=== PATIENT | female | born 1955 | race American Indian/Alaskan Native ===

== ENCOUNTER 2017-05-06 17:55 | Emergency (ER) | payer MEDICARE ==
--- NOTE | 2017-05-06 20:56 | Emergency Department Report ---
ED ENT HPI - General Chief complaint: Earache Stated complaint: SWOLLEN THROAT Time Seen by Provider: 05/06/17 20:26 Source: patient Mode of arrival: Ambulatory Limitations: No Limitations - History of Present Illness Initial comments: Patient is a 61-year-old female who's complaining of right neck pain. Patient and present for approximately 5-6 days. Patient was diagnosed with an infection in her anterior cervical lymph nodes/salivary glands. She was not given a definitive diagnosis. Patient on clindamycin for the last 4 days but states that she has no change in the symptoms there is still swelling and pain. Patient is able to breathe fine and swallow. Patient denies any fevers chills cough nausea vomiting diarrhea at this time. - Related Data Home Medications Medication Instructions Recorded Confirmed Last Taken Cyclobenzaprine [Flexeril] 10 mg PO TID PRN 08/01/13 11/19/13 07/31/13 07:00 Lisinopril [Zestril] 10 mg PO QDAY 08/01/13 11/19/13 07/31/13 07:00 Lovastatin [Mevacor] 20 mg PO QPM 08/01/13 11/19/13 07/31/13 07:00 Meloxicam [Mobic] 7.5 mg PO QDAY 08/01/13 11/19/13 07/31/13 07:00 Previous Rx's Medication Instructions Recorded Last Taken Type Lisinopril/Hydrochlorothiazide 1 tab PO QDAY #30 tablet 11/19/13 Unknown Rx [Zestoretic 20-12.5 mg] Amoxicillin/Potassium Clav 1 each PO BID #14 tablet 05/06/17 Unknown Rx [Augmentin 875-125 Tablet] predniSONE [Deltasone] 20 mg PO QDAY #5 tab 05/06/17 Unknown Rx traMADol [Ultram] 50 mg PO Q6HR PRN #12 tablet 05/06/17 Unknown Rx Allergies Allergy/AdvReac Type Severity Reaction Status Date / Time acetaminophen Allergy Vomiting Verified 11/21/15 09:34 [From Darvocet-N] propoxyphene HCl Allergy Vomiting Verified 11/21/15 09:34 [From Darvon] propoxyphene napsylate Allergy Vomiting Verified 11/21/15 09:34 [From Darvocet-N] ED Dental HPI - General Chief complaint: Earache Stated complaint: SWOLLEN THROAT Time Seen by Provider: 05/06/17 20:26 Source: patient Mode of arrival: Ambulatory Limitations: No Limitations - Related Data Home Medications Medication Instructions Recorded Confirmed Last Taken Cyclobenzaprine [Flexeril] 10 mg PO TID PRN 08/01/13 11/19/13 07/31/13 07:00 Lisinopril [Zestril] 10 mg PO QDAY 08/01/13 11/19/13 07/31/13 07:00 Lovastatin [Mevacor] 20 mg PO QPM 08/01/13 11/19/13 07/31/13 07:00 Meloxicam [Mobic] 7.5 mg PO QDAY 08/01/13 11/19/13 07/31/13 07:00 Previous Rx's Medication Instructions Recorded Last Taken Type Lisinopril/Hydrochlorothiazide 1 tab PO QDAY #30 tablet 11/19/13 Unknown Rx [Zestoretic 20-12.5 mg] Amoxicillin/Potassium Clav 1 each PO BID #14 tablet 05/06/17 Unknown Rx [Augmentin 875-125 Tablet] predniSONE [Deltasone] 20 mg PO QDAY #5 tab 05/06/17 Unknown Rx traMADol [Ultram] 50 mg PO Q6HR PRN #12 tablet 05/06/17 Unknown Rx Allergies Allergy/AdvReac Type Severity Reaction Status Date / Time acetaminophen Allergy Vomiting Verified 11/21/15 09:34 [From Darvocet-N] propoxyphene HCl Allergy Vomiting Verified 11/21/15 09:34 [From Darvon] propoxyphene napsylate Allergy Vomiting Verified 11/21/15 09:34 [From Darvocet-N] ED Review of Systems ROS: Stated complaint: SWOLLEN THROAT Other details as noted in HPI Comment: All other systems reviewed and negative ED Past Medical Hx - Past Medical History Hx Hypertension: Yes Hx Arthritis: Yes Additional medical history: hi cholest - Surgical History Hx Cholecystectomy: Yes Additional Surgical History: hysterectomy - Social History Smoking Status: Current Every Day Smoker Substance Use Type: None - Medications Home Medications: Home Medications Medication Instructions Recorded Confirmed Last Taken Type Cyclobenzaprine [Flexeril] 10 mg PO TID PRN 08/01/13 11/19/13 07/31/13 07:00 History Lisinopril [Zestril] 10 mg PO QDAY 08/01/13 11/19/13 07/31/13 07:00 History Lovastatin [Mevacor] 20 mg PO QPM 08/01/13 11/19/13 07/31/13 07:00 History Meloxicam [Mobic] 7.5 mg PO QDAY 08/01/13 11/19/13 07/31/13 07:00 History Lisinopril/Hydrochlorothiazide 1 tab PO QDAY #30 tablet 11/19/13 Unknown Rx [Zestoretic 20-12.5 mg] Amoxicillin/Potassium Clav 1 each PO BID #14 tablet 05/06/17 Unknown Rx [Augmentin 875-125 Tablet] predniSONE [Deltasone] 20 mg PO QDAY #5 tab 05/06/17 Unknown Rx traMADol [Ultram] 50 mg PO Q6HR PRN #12 tablet 05/06/17 Unknown Rx ED Physical Exam - General Limitations: No Limitations General appearance: alert, in no apparent distress - Head Head exam: Present: atraumatic, normocephalic - Eye Eye exam: Present: normal appearance - ENT ENT exam: Present: mucous membranes moist, other (patient has swelling to the submandibular area at near the angle of the jaw. There is an area of swelling partially sizable time. There is no overlying erythema or fluctuance. Patient' s airway appears to be intact.) - Neck Neck exam: Present: normal inspection - Respiratory Respiratory exam: Present: normal lung sounds bilaterally. Absent: respiratory distress, wheezes, rales - Cardiovascular Cardiovascular Exam: Present: regular rate, normal rhythm. Absent: systolic murmur, diastolic murmur, rubs, gallop - GI/Abdominal GI/Abdominal exam: Present: soft, normal bowel sounds. Absent: distended, tenderness, guarding - Extremities Exam Extremities exam: Present: normal inspection - Back Exam Back exam: Present: normal inspection - Neurological Exam Neurological exam: Present: alert, oriented X3 - Psychiatric Psychiatric exam: Present: normal affect, normal mood - Skin Skin exam: Present: warm, dry, intact, normal color. Absent: rash ED Course Vital Signs 05/06/17 17:58 Temperature 98.5 F Pulse Rate 85 Respiratory 16 Rate Blood Pressure 145/79 O2 Sat by Pulse 97 Oximetry ED Medical Decision Making - Medical Decision Making The patient has had no change in her symptoms since starting the clindamycin and she'll be changed from clindamycin to Augmentin. Patient will also be started on prednisone and Ultram for pain. Patient be discharged home she has follow-up with ENT on May 14 Critical care attestation.: If time is entered above; I have spent that time in minutes in the direct care of this critically ill patient, excluding procedure time. ED Disposition Clinical Impression: Parotitis Disposition: - TO HOME OR SELFCARE Is pt being admited?: No Does the pt Need Aspirin: No Condition: Stable Prescriptions: Amoxicillin/Potassium Clav [Augmentin 875-125 Tablet] 1 each PO BID #14 tablet predniSONE [Deltasone] 20 mg PO QDAY #5 tab traMADol [Ultram] 50 mg PO Q6HR PRN #12 tablet PRN Reason: Pain Referrals: PRIMARY CARE, [Primary Care Provider] - 3-5 Days
[2017-05-06 21:55] VITALS: BP 145/75
== END 2017-05-06 21:55 | disposition home or self-care (01) ==
LOC: ED 17:55
DX: K11.20 Sialoadenitis, unspecified (principal); I10 Essential (primary) hypertension; M19.90 Unspecified osteoarthritis, unspecified site; E78.00 Pure hypercholesterolemia, unspecified; F17.200 Nicotine dependence, unspecified, uncomplicated; Z90.49 Acquired absence of other specified parts of digestive tract; Z90.710 Acquired absence of both cervix and uterus
CPT/HCPCS: 99282

== ENCOUNTER 2017-11-29 12:17 | Emergency (ER) | payer SELFPAY ==
[2017-11-29 12:29] VITALS: BP 168/80
== END 2017-11-29 15:35 | disposition left against medical advice (07) ==
LOC: ED 12:17
DX: I10 Essential (primary) hypertension (principal); Z53.21 Procedure and treatment not carried out due to patient leaving prior to being seen by health care provider

== ENCOUNTER 2017-11-29 20:04 | Emergency (ER) | payer MEDICARE ==
[2017-11-29 21:19] LABS: Basophils # (Auto) 0.1 K/mm3 (0.0-0.1); Basophils % (Auto) 0.7 % (0.0-1.8); Eosinophils # (Auto) 0.1 K/mm3 (0.0-0.4); Eosinophils % (Auto) 1.5 % (0.0-4.3); Hematocrit 37.6 % (30.3-42.9); Hemoglobin 12.2 gm/dl (10.1-14.3); Lymphocytes # (Auto) 4.1 K/mm3 (1.2-5.4); Lymphocytes % (Auto) 44.3 % (13.4-35.0); Mean Corpuscular HGB Conc 33 % (30-34); Mean Corpuscular Hemoglobin 28 pg (28-32); Mean Corpuscular Volume 86 fl (79-97); Monocytes # (Auto) 0.6 K/mm3 (0.0-0.8); Monocytes % (Auto) 6.8 % (0.0-7.3); Platelet Count 311 K/mm3 (140-440); Red Blood Count 4.39 M/mm3 (3.65-5.03); Red Cell Distribution Width 14.7 % (13.2-15.2)
[2017-11-29 21:26] LABS: BUN/Creatinine Ratio 22; Blood Urea Nitrogen 13 mg/dL (7-17); Calcium 9.3 mg/dL (8.4-10.2); Hemolysis Index 4
--- NOTE | 2017-11-29 21:32 | Cat Scan Report ---
FINAL REPORT PROCEDURE: CT HEAD/BRAIN WO CON TECHNIQUE: Computerized tomography of the head was performed without contrast material. HISTORY: headache COMPARISON: No prior studies are available for comparison. FINDINGS: Skull and scalp: Normal. Paranasal sinuses: Normal. Ventricles and subarachnoid spaces: Normal. Cerebrum: No evidence of hemorrhage, acute infarction or mass. Basal ganglia calcifications are noted Cerebellum and brainstem: No evidence of hemorrhage, acute infarction or mass. Vasculature: Atherosclerotic calcifications.. Comments: None. IMPRESSION: No acute intracranial abnormality.
[2017-11-30] MEDS ORDERED: CATAPRES PO ONE (04:26)
[2017-11-30] MEDS ORDERED: TYLENOL PO ONE (04:26)
--- NOTE | 2017-11-30 04:31 | Emergency Department Report ---
HPI - General Chief Complaint: Headache Time Seen by Provider: 11/30/17 04:03 - HPI HPI: Room 22 The patient is a 62-year-old female presenting with a chief complaint of hypertension and headache. The patient states she's had a frontal headache since yesterday. The patient states she went to the pharmacy today and had blood pressure checked and was found to be hypertensive at 186/96. The patient states she is advised to come to the emergency department by the pharmacist so she took her blood pressure medication and came to the ED. The patient states she still has a headache but has improved she currently gives her pain is scored 6/10. Patient denies nausea vomiting. Patient denies any other pain Location: Head Duration: Constant since yesterday Quality: Ache Severity: 6/10 Modifying factors: [see above] Context: [see above] Mode of transportation: [not driving] ED Past Medical Hx - Past Medical History Hx Hypertension: Yes Hx Arthritis: Yes Additional medical history: hi cholest, TIA - Surgical History Hx Cholecystectomy: Yes Additional Surgical History: hysterectomy - Family History Family history: no significant - Social History Smoking Status: Current Every Day Smoker (3/4 pack per day) Substance Use Type: None (denies illicit drug use) - Medications Home Medications: Home Medications Medication Instructions Recorded Confirmed Last Taken Type Lovastatin [Mevacor] 20 mg PO QPM 08/01/13 11/19/13 07/31/13 07:00 History Meloxicam [Mobic] 7.5 mg PO QDAY 08/01/13 11/19/13 07/31/13 07:00 History amLODIPine [Norvasc] 2.5 mg PO DAILY 11/30/17 11/30/17 11/29/17 History hydroCHLOROthiazide 1 tab PO DAILY 11/30/17 11/30/17 Unknown History [Hydrochlorothiazide] ED Review of Systems ROS: Stated complaint: HIGH BLOOD PRESSURE Other details as noted in HPI Constitutional: no symptoms reported Eyes: denies: eye pain ENT: denies: throat pain Respiratory: no symptoms reported Cardiovascular: denies: chest pain Endocrine: no symptoms reported Gastrointestinal: denies: abdominal pain, nausea, vomiting Genitourinary: denies: dysuria Musculoskeletal: denies: back pain Neurological: headache Physical Exam - Physical Exam Vital Signs: Vital Signs 11/29/17 11/30/17 11/30/17 20:20 03:05 03:13 Temperature 98.7 F Pulse Rate 78 69 Respiratory 18 18 18 Rate Blood Pressure 160/77 165/85 Blood Pressure [Left] O2 Sat by Pulse 99 Oximetry 11/30/17 11/30/17 11/30/17 03:20 03:30 04:00 Temperature Pulse Rate 68 68 65 Respiratory 16 15 22 Rate Blood Pressure 151/83 174/89 Blood Pressure 165/88 [Left] O2 Sat by Pulse Oximetry Vital Signs 11/29/17 11/30/17 11/30/17 20:20 03:05 03:13 Temperature 98.7 F Pulse Rate 78 69 Respiratory 18 18 18 Rate Blood Pressure 160/77 165/85 Blood Pressure [Left] O2 Sat by Pulse 99 Oximetry 11/30/17 11/30/17 11/30/17 03:20 03:30 04:00 Temperature Pulse Rate 68 68 65 Respiratory 16 15 22 Rate Blood Pressure 151/83 174/89 Blood Pressure 165/88 [Left] O2 Sat by Pulse Oximetry 11/30/17 11/30/17 11/30/17 04:30 04:35 04:50 Temperature Pulse Rate 71 77 72 Respiratory 17 18 17 Rate Blood Pressure 161/87 161/87 174/89 Blood Pressure [Left] O2 Sat by Pulse Oximetry 11/30/17 11/30/17 05:06 05:40 Temperature Pulse Rate 62 67 Respiratory 17 16 Rate Blood Pressure 161/87 123/68 Blood Pressure 123/68 [Left] O2 Sat by Pulse Oximetry Physical Exam: GENERAL: The patient is well-developed well-nourished female lying on stretcher not appearing to be in acute distress. [] HEENT: Normocephalic. Atraumatic. Extraocular motions are intact. Patient has moist mucous membranes. NECK: Supple. No meningitic signs are noted. Trachea midline CHEST/LUNGS: Clear to auscultation. There is no respiratory distress noted. HEART/CARDIOVASCULAR: Regular. There is no tachycardia. There is no gallop rub or murmur. ABDOMEN: Abdomen is soft, nontender. Patient has normal bowel sounds. There is no abdominal distention. SKIN: There is no rash. There is no edema. There is no diaphoresis. NEURO: The patient is awake, alert, and oriented. The patient is cooperative. The patient has no focal neurologic deficits. The patient has normal speech. Cranial nerves II through XII grossly intact, no drift MUSCULOSKELETAL: There is no evidence of acute injury. ED Course Vital Signs 11/29/17 11/30/17 11/30/17 20:20 03:05 03:13 Temperature 98.7 F Pulse Rate 78 69 Respiratory 18 18 18 Rate Blood Pressure 160/77 165/85 Blood Pressure [Left] O2 Sat by Pulse 99 Oximetry 11/30/17 11/30/17 11/30/17 03:20 03:30 04:00 Temperature Pulse Rate 68 68 65 Respiratory 16 15 22 Rate Blood Pressure 151/83 174/89 Blood Pressure 165/88 [Left] O2 Sat by Pulse Oximetry ED Medical Decision Making - Lab Data Result diagrams: 11/29/17 20:56 11/29/17 20:56 Laboratory Tests 11/29/17 11/29/17 20:56 20:56 WBC 9.4 RBC 4.39 Hgb 12.2 Hct 37.6 MCV 86 MCH 28 MCHC 33 RDW 14.7 Plt Count 311 Lymph % (Auto) 44.3 H [place] % (Auto) 6.8 Eos % (Auto) 1.5 Baso % (Auto) 0.7 Lymph # 4.1 [place] # 0.6 Eos # 0.1 Baso # 0.1 Seg Neutrophils % 46.7 Seg Neutrophils # 4.4 Sodium 143 Potassium 3.9 Chloride 105.1 Carbon Dioxide 27 Anion Gap 15 BUN 13 Creatinine 0.6 L Estimated GFR > 60 BUN/Creatinine Ratio 22 Glucose 123 H Calcium 9.3 Troponin T < 0.010 - EKG Data -: EKG Interpreted by Ca EKG shows normal: sinus rhythm Rate: normal - EKG Data When compared to previous EKG there are: no significant change Interpretation: unchanged when compared t (09/28/2008) - Radiology Data Radiology results: report reviewed (CT head), image reviewed (CT head) CT head (read by radiologist) -no acute intracranial abnormality - Differential Diagnosis hypertensive emergency, ICH, headache Critical care attestation.: If time is entered above; I have spent that time in minutes in the direct care of this critically ill patient, excluding procedure time. ED Disposition Clinical Impression: Headache, Hypertension Disposition: DC-01 TO HOME OR SELFCARE Is pt being admited?: No Does the pt Need Aspirin: No Condition: Stable Instructions: Hypertension (ED) Additional Instructions: Return to the emergency department immediately should you develop worsening symptoms, fever, inability to tolerate food or liquid or any other concerns. Referrals: LUCY MOTLEY MD [Primary Care Provider] - [facility] Time of Disposition: 05:44
[2017-11-30 05:42] VITALS: BP 123/68
== END 2017-11-30 05:50 | disposition home or self-care (01) ==
LOC: ED 20:04
DX: I10 Essential (primary) hypertension (principal); M19.90 Unspecified osteoarthritis, unspecified site; E78.00 Pure hypercholesterolemia, unspecified; F17.200 Nicotine dependence, unspecified, uncomplicated; Z86.73 Personal history of transient ischemic attack (TIA), and cerebral infarction without residual deficits; Z90.49 Acquired absence of other specified parts of digestive tract; Z90.710 Acquired absence of both cervix and uterus; Z88.8 Allergy status to other drugs, medicaments and biological substances; Z88.5 Allergy status to narcotic agent
CPT/HCPCS: 36415; 70450; 80048; 84484; 85025; 93005; 93010; 99284

== ENCOUNTER 2018-05-25 10:44 | Outpatient (CLI) | payer MEDICARE ==
--- NOTE | 2018-05-25 14:21 | Mammography Report ---
BILATERAL DIGITAL SCREENING MAMMOGRAM with CAD: 05/25/18 10:44:00 CLINICAL: Routine screening. COMPARISON:04/10/13 FINDINGS: The breasts are heterogeneously dense, which may obscure small masses. No mass, architectural distortion or suspicious calcifications. IMPRESSION: No mammographic evidence of malignancy. BI-RADS CATEGORY: 1 - - Negative RECOMMENDATION: Routine mammographic screening in one year. COMMENT: Patient follow-up letters are generated by our [employer] application.
== END 2018-05-25 10:45 | disposition home or self-care (01) ==
LOC: MAMMO 10:44
PROVIDERS: ATTEND Family Medicine
DX: Z12.31 Encounter for screening mammogram for malignant neoplasm of breast (principal); I10 Essential (primary) hypertension; M19.90 Unspecified osteoarthritis, unspecified site; Z90.49 Acquired absence of other specified parts of digestive tract; Z90.710 Acquired absence of both cervix and uterus
CPT/HCPCS: 77067

== ENCOUNTER 2018-07-21 09:35 | Outpatient (CLI) | payer MEDICARE ==
--- NOTE | 2018-07-21 11:58 | XRay Report ---
SACROILIAC JOINTS: History: Generalized osteoarthrosis. PA and both obliques of the SI joints demonstrate a normal joint space with well defined cortical margins. The bones are normally mineralized with no destructive changes or fractures. IMPRESSION: Normal study.
--- NOTE | 2018-07-21 12:00 | XRay Report ---
BILATERAL ANKLES, 3 VIEWS History: Generalized osteoarthrosis. Findings: There is moderate soft tissue swelling or edema in the left ankle and mild soft tissue swelling or edema in the right ankle. No significant degenerative changes are identified at the tibiotalar joints bilaterally. There are [id number] osteoarthritic changes in the midfoot bilaterally. Moderate bilateral plantar spurs are identified. IMPRESSION: Nonspecific soft tissue swelling or edema, left greater than right. Degenerative changes in the midfoot. Moderate bilateral plantar spurs.
--- NOTE | 2018-07-21 12:05 | XRay Report ---
ROUTINE CHEST, TWO VIEWS: HISTORY: chest pain. The trachea, heart, mediastinal contour, lung beckman and bony thorax are unremarkable. Mild multilevel degenerative disc disease is noted in the thoracic spine. IMPRESSION: Unremarkable chest x-ray.
--- NOTE | 2018-07-21 12:13 | XRay Report ---
CERVICAL SPINE, 5 views: History: Generalized osteoarthrosis. Findings: On the lateral images, there is minimal anterolisthesis of C5 with respect to C6 and C6 with respect to C7 measuring approximately 2 mm. This appears to be secondary to degenerative facet arthropathy. The remaining cervical vertebra are normal in alignment. There is mild disc space narrowing and posterior spurring at C3-4, C4-5 and C5-6. The oblique images suggest mild left neural foraminal narrowing at C4-5. No evidence for fracture or bone lesion. The prevertebral soft tissues are normal thickness. IMPRESSION: Mild to moderate degenerative findings as described above.
--- NOTE | 2018-07-21 12:14 | XRay Report ---
LUMBOSACRAL SPINE, FIVE VIEWS: HISTORY: Generalized osteoarthrosis. There is normal height and alignment of the lumbar vertebral bodies. No evidence for fracture, bone lesion or malalignment. Mild degenerative disc disease is identified at all levels. Moderate hypertrophic facet arthropathy is identified at L4-5 and L5-S1. Mild facet arthropathy in the remaining levels. The oblique images are limited and poorly demonstrate the neural foramen selection of assessment for neural foraminal narrowing. IMPRESSION: Moderate lumbar spondylosis as described.
== END 2018-07-21 09:36 | disposition home or self-care (01) ==
LOC: XRAY 09:35
PROVIDERS: ATTEND Specialist
DX: M47.816 Spondylosis without myelopathy or radiculopathy, lumbar region (principal); M47.812 Spondylosis without myelopathy or radiculopathy, cervical region; M48.02 Spinal stenosis, cervical region; M19.072 Primary osteoarthritis, left ankle and foot; M19.071 Primary osteoarthritis, right ankle and foot; R07.9 Chest pain, unspecified
CPT/HCPCS: 71046; 72050; 72110; 72202

== ENCOUNTER 2019-04-25 13:29 | Emergency (ER) | payer SELFPAY ==
[2019-04-25 14:26] VITALS: BP 150/72
== END 2019-04-25 16:20 | disposition left against medical advice (07) ==
LOC: ED 13:29
DX: R51 Headache (principal); Z53.21 Procedure and treatment not carried out due to patient leaving prior to being seen by health care provider

== ENCOUNTER 2019-11-22 12:20 | Emergency (ER) | payer MEDICARE ==
[2019-11-22 12:36] VITALS: BP 146/83
--- NOTE | 2019-11-22 12:52 | Emergency Department Report ---
Blank Doc - Documentation Documentation: 64-year-old female that presents with right shoulder, right hip and lower back pain s/p trip and fall in a store. Denies any other injuries or trauma. Denies LOC or head trauma. This initial assessment/diagnostic orders/clinical plan/treatment(s) is/are subject to change based on patient's health status, clinical progression and re- assessment by fellow clinical providers in the ED. Further treatment and workup at subsequent clinical providers discretion. Patient/guardians urged not to elope from the ED as their condition may be serious if not clinically assessed and managed. Initial orders include: 1- Patient sent to [facility] for further evaluation and treatment 2- xrays
--- NOTE | 2019-11-22 13:52 | XRay Report ---
RIGHT SHOULDER 3 VIEWS INDICATION: Right shoulder pain after fall. COMPARISON: None. IMPRESSION: No acute osseous or soft tissue abnormality. Mild acromioclavicular osteoarthritis is noted. RIGHT HIP 2 VIEWS INDICATION: Right hip pain after fall. COMPARISON: None. IMPRESSION: No acute osseous or soft tissue abnormality. No significant DJD. LUMBOSACRAL SPINE 3 VIEWS INDICATION: Back pain after fall. COMPARISON: None. IMPRESSION: Normal alignment. Mild multilevel degenerative disc disease and facet arthropathy are i dentified. Subtle L1 superior endplate deformity is suspected. No loss of height is appreciated. Cor relate with the patient and consider further imaging with CT. Signer Name: Angel Mckinley Jr, MD Signed: 11/22/2019 1:47 PM Workstation Name: [id number]
[2019-11-22] MEDS ORDERED: HYDROcodone/ACETAMINOPHEN 10-325MG TAB PO ONE (17:17)
--- NOTE | 2019-11-22 17:42 | Emergency Department Report ---
ED Back Pain/Injury HPI - General Chief Complaint: Back Pain/Injury Stated Complaint: FALL Time Seen by Provider: 11/22/19 12:51 Source: patient Limitations: No Limitations - History of Present Illness Initial Comments: This is a 64-year-old female nontoxic, well nourished in appearance, no acute signs of distress presents to the ED with c/o of acute lower back pain, right hip pain, and right shoulder pain s/p fall that occurred today. Patient stated that she had a trip and fall in the store today. Patient denies any other injuries or complaints. Denies any head injuries or neck pains. Denies any LOC. Denies any radiation of pain. Denies any bladder or bowel instability. Patient denies any urinary symptoms. Denies any fever, chills, nausea, vomiting, headache, stiff neck, chest pain or shortness of breath. Patient denies any numbness or tingling. MD Complaint: back pain, fall -: This morning Similar Symptoms Previously: No Place: other (store) Radiation: none Severity: mild Severity scale (0 -10): 8 Quality: aching Consistency: intermittent Improves With: immobilization, sitting upright Worsens With: movement, walking Context: fall Associated Symptoms: denies other symptoms. denies: confusion, weakness, chest pain, numbness, difficulty walking, cough, difficulty urinating, diaphoresis, incontinence, fever/chills, constipation, headaches, abdominal pain, loss of appetite, malaise, nausea/vomiting, rash, seizure, shortness of breath, syncope - Related Data Home Medications Medication Instructions Recorded Confirmed Last Taken Lovastatin [Mevacor] 20 mg PO QPM 08/01/13 11/30/17 07/31/13 07:00 Meloxicam [Mobic] 7.5 mg PO QDAY 08/01/13 11/30/17 07/31/13 07:00 amLODIPine [Norvasc] 2.5 mg PO DAILY 11/30/17 11/30/17 11/29/17 hydroCHLOROthiazide 1 tab PO DAILY 11/30/17 11/30/17 Unknown [Hydrochlorothiazide] Previous Rx's Medication Instructions Recorded Last Taken Type Cyclobenzaprine HCl [Flexeril 5 MG 5 mg PO QHS PRN #5 tab 11/22/19 Unknown Rx TAB] Allergies Allergy/AdvReac Type Severity Reaction Status Date / Time ibuprofen [From Motrin] Allergy Unknown Verified 11/22/19 12:33 lisinopril Allergy Unknown Verified 11/22/19 12:33 propoxyphene HCl Allergy Vomiting Verified 11/22/19 12:33 [From Darvon] propoxyphene napsylate Allergy Vomiting Verified 11/22/19 12:33 [From Darvocet-N] ED Review of Systems ROS: Stated complaint: FALL Other details as noted in HPI Constitutional: denies: chills, fever Eyes: denies: eye pain, eye discharge, vision change ENT: denies: ear pain, throat pain Respiratory: denies: cough, shortness of breath, wheezing Cardiovascular: denies: chest pain, palpitations Endocrine: no symptoms reported Gastrointestinal: denies: abdominal pain, nausea, diarrhea Genitourinary: denies: urgency, dysuria, discharge Musculoskeletal: back pain. denies: joint swelling, arthralgia Skin: denies: rash, lesions Neurological: denies: headache, weakness, paresthesias Psychiatric: denies: anxiety, depression Hematological/Lymphatic: denies: easy bleeding, easy bruising ED Past Medical Hx - Past Medical History Hx Hypertension: Yes Hx Arthritis: Yes Additional medical history: hi cholest, TIA - Surgical History Hx Cholecystectomy: Yes Additional Surgical History: hysterectomy - Social History Smoking Status: Current Every Day Smoker - Medications Home Medications: Home Medications Medication Instructions Recorded Confirmed Last Taken Type Lovastatin [Mevacor] 20 mg PO QPM 08/01/13 11/30/17 07/31/13 07:00 History Meloxicam [Mobic] 7.5 mg PO QDAY 08/01/13 11/30/17 07/31/13 07:00 History amLODIPine [Norvasc] 2.5 mg PO DAILY 11/30/17 11/30/17 11/29/17 History hydroCHLOROthiazide 1 tab PO DAILY 11/30/17 11/30/17 Unknown History [Hydrochlorothiazide] Cyclobenzaprine HCl [Flexeril 5 MG 5 mg PO QHS PRN #5 tab 11/22/19 Unknown Rx TAB] ED Physical Exam - General Limitations: No Limitations General appearance: alert, in no apparent distress - Head Head exam: Present: atraumatic, normocephalic - Eye Eye exam: Present: normal appearance, PERRL, EOMI - Neck Neck exam: Present: normal inspection, full ROM. Absent: tenderness, meningismus, lymphadenopathy - Respiratory Respiratory exam: Present: normal lung sounds bilaterally. Absent: respiratory distress, wheezes, rales, rhonchi, stridor, chest wall tenderness, accessory muscle use, decreased breath sounds, prolonged expiratory - Cardiovascular Cardiovascular Exam: Present: regular rate, normal rhythm, normal heart sounds. Absent: bradycardia, tachycardia, irregular rhythm, systolic murmur, diastolic murmur, rubs, gallop - GI/Abdominal GI/Abdominal exam: Present: soft, normal bowel sounds. Absent: distended, tenderness, guarding, rebound, rigid, diminished bowel sounds - Extremities Exam Extremities exam: Present: normal inspection, full ROM, tenderness, normal capillary refill. Absent: joint swelling - Expanded Upper Extremity Exam Right General: Present: normal inspection Shoulder Exam: Present: full ROM, tenderness. Absent: swelling, abrasion, laceration, ecchymosis, deformity, crepidus, dislocation, erythema, tenderness over AC joint Upper Arm exam: Present: normal inspection, full ROM. Absent: tenderness, swelling Elbow exam: Present: normal inspection, full ROM. Absent: tenderness, swelling Forearm Wrist exam: Present: normal inspection, full ROM. Absent: tenderness, swelling Hand Wrist exam: Present: normal inspection, full ROM. Absent: tenderness, swelling Vascular: Present: normal capillary refill. Absent: vascular compromise (Neurovascular within normal limits) - Expanded Lower Extremity Exam Right Hip exam: Present: full ROM, tenderness, external rotation, internal rotation, pelvic stability. Absent: swelling, abrasion, laceration, ecchymosis, deformity, crepidus, dislocation, erythema, shortening Upper Leg exam: Present: normal inspection, full ROM. Absent: tenderness, swelling Knee exam: Present: normal inspection, full ROM. Absent: tenderness, swelling Lower Leg exam: Present: normal inspection, full ROM. Absent: tenderness, swelling Ankle exam: Present: normal inspection, full ROM. Absent: tenderness, swelling Foot/Toe exam: Present: normal inspection, full ROM. Absent: tenderness, swelling Neuro vascular tendon exam: Present: no vascular compromise Gait: Positive: observed and limited by pain - Back Exam Back exam: Present: normal inspection, full ROM, paraspinal tenderness (Lumbar area), vertebral tenderness (lumbar spine). Absent: tenderness, CVA tenderness (R), CVA tenderness (L), muscle spasm, rash noted - Expanded Back Exam Expanded Back exam: Absent: saddle anesthesia Back exam: Negative Straight Leg Raising: Left, Right - Neurological Exam Neurological exam: Present: alert, oriented X3, normal gait - Psychiatric Psychiatric exam: Present: normal affect, normal mood - Skin Skin exam: Present: warm, dry, intact, normal color. Absent: rash ED Course Vital Signs 11/22/19 11/22/19 12:34 17:22 Temperature 98.2 F Pulse Rate 86 Respiratory 18 18 Rate Blood Pressure 146/83 O2 Sat by Pulse 99 Oximetry - Reevaluation(s) Reevaluation #1: 11/22/19 17:42 Patient is speaking in full sentences with no signs of distress noted. ED Medical Decision Making - Radiology Data Referring Physician: PHOENIX ROWE Patient Name: YASHIRA ESTRADA Date of : 1955 Sex: Female Report Date: 2019-11-22 Report Status: [place] [address] Cat Scan Report Signed Patient: YASHIRA ESTRADA MR#: [id number] : 1955 Acct:[id number] Age/Sex: 64 / F ADM Date: 11/22/19 Loc: ED Attending Dr: Ordering Physician: PHOENIX ROWE NP Date of Service: 11/22/19 Procedure(s): CT lumbar spine wo con Accession Number(s): [id number] cc: PHOENIX ROWE NP CT lumbar spine wo con INDICATION / CLINICAL INFORMATION: 64 years Female; low back pain s/p fall. TECHNIQUE: Axial CT images of the lumbar spine were obtained after administration of intrathecal contrast. Sagittal and coronal reformatted images were produced. All CT scans at this location are performed using CT dose reduction for ALARA by means of automated exposure control. COMPARISON: None available. FINDINGS: POST-SURGICAL CHANGES: None. ALIGNMENT: There is slight anterolisthesis at L4-L5 with associated prominence of facet joint arthropathy. There is minimal retrolisthesis at L5-S1 with notable left facet joint hypertrophy. There is no significant lumbar scoliosis. VERTEBRAE: The findings are most consistent with degenerative the changes and limits L3 vertebrae with well corticated density along the anterior, superior endplate at. Also multilevel mild endplate changes particularly anteriorly, involving the remaining is less orbital lumbar segments. There is no clear CT evidence of acute compression fracture involving the lumbar spine. INTERVERTEBRAL DISCS: The left-sided facet joint hypertrophy at L5-S1 encroaches on the exiting left L5 nerve root sheath at. Mild narrowing is seen on the right. The disc bulge and facet joint hypertrophy at L4-L5 results in mild degree of spinal stenosis at. Additionally, the neural from narrowing encroaches on the exiting L4 nerve root sheaths bilaterally. There is no stenosis at L3-4. There are mild facet joint changes at L2-3 with slight flattening of the thecal sac at. There is mild left neural foraminal narrowing. The right-sided hypertrophic changes at T11-12. Res ult in moderate degree of right foraminal narrowing. PARASPINAL SOFT TISSUES: No significant abnormality. ADDITIONAL FINDINGS: None. IMPRESSION: 1. There are multilevel degenerative the changes involving lumbar spine, most notably at L4-5 and on the left at L5-S1 as detailed above. 2. The endplate changes at L3-4. Be on a degenerative basis. There is no clear CT evidence of acute fracture involving the lumbar spine. Signer Name: Zev Rangel MD Signed: 11/22/2019 5:54 PM Workstation Name: [id number] Transcribed By: MR Dictated By: Zev Rangel MD Electronically Authenticated By: Zev Rangel MD Signed Date/Time: 11/22/191753 DD/ 45 TD/TT: Referring Physician: PHOENIX ROWE Patient Name: YASHIRA ESTRADA Date of : 1955 Sex: Female Report Date: 2019-11-22 Report Status: Finalized [facility] [address] [place] [address] XRay Report Signed Patient: YASHIRA ESTRADA MR#: [id number] : 1955 Acct:[id number] Age/Sex: 64 / F ADM Date: 11/22/19 Loc: ED Attending Dr: Ordering Physician: PHOENIX ROWE NP Date of Service: 11/22/19 Procedure(s): XR hip 2-3V RT Accession Number(s): [id number] cc: PHOENIX ROWE NP Fluoro Time In Minutes: RIGHT SHOULDER 3 VIEWS INDICATION: Right shoulder pain after fall. COMPARISON: None. IMPRESSION: No acute osseous or soft tissue abnormality. Mild acromioclavicular osteoarthritis is noted. RIGHT HIP 2 VIEWS INDICATION: Right hip pain after fall. COMPARISON: None. IMPRESSION: No acute osseous or soft tissue abnormality. No significant DJD. LUMBOSACRAL SPINE 3 VIEWS INDICATION: Back pain after fall. COMPARISON: None. IMPRESSION: Normal alignment. Mild multilevel degenerative disc disease and facet arthropathy are identified. Subtle L1 superior endplate deformity is suspected. No loss of height is appreciated. Correlate with the patient and consider further imaging with CT. Signer Name: Angel Mckinley Jr, MD Signed: 11/22/2019 1:47 PM Workstation Name: [id number] Transcribed By: TTR Dictated By: ANGEL MCKINLEY JR, MD Electronically Authenticated By: ANGEL MCKINLEY JR, MD Signed Date/Time: 11/22/19 1347 DD/ 1345 TD/TT: Referring Physician: PHOENIX ROWE Patient Name: YASHIRA ESTRADA Date of : 1955 Sex: Female Report Date: 2019-11-22 Report Status: Finalized [address] [address] XRay Report Signed Patient: YASHIRA ESTRADA MR#: [id number] [id number] : 1955 Acct:[id number] Age/Sex: 64 / F ADM Date: 11/22/19 Loc: ED Attending Dr: Ordering Physician: PHOENIX ROWE NP Date of Service: 11/22/19 Procedure(s): XR spine lumbosacral 2-3V Accession Number(s): [id number] cc: PHOENIX ROWE NP Fluoro Time In Minutes: RIGHT SHOULDER 3 VIEWS INDICATION: Right shoulder pain after fall. COMPARISON: None. IMPRESSION: No acute osseous or soft tissue abnormality. Mild acromioclavicular osteoarthritis is noted. RIGHT HIP 2 VIEWS INDICATION: Right hip pain after fall. COMPARISON: None. IMPRESSION: No acute osseous or soft tissue abnormality. No significant DJD. LUMBOSACRAL SPINE 3 VIEWS INDICATION: Back pain after fall. COMPARISON: None. IMPRESSION: Normal alignment. Mild multilevel degenerative disc disease and facet arthropathy are identified. Subtle L1 superior endplate deformity is suspected. No loss of height is appreciated. Correlate with the patient and consider further imaging with CT. Signer Name: Angel Mckinley Jr, MD Signed: 11/22/2019 1:47 PM Workstation Name: [id number] Transcribed By: TTR Dictated By: ANGEL MCKINLEY JR, MD Electronically Authenticated By: ANGEL MCKINLEY JR, MD Signed Date/Time: 11/22/19 1347 DD/ 1345 TD/TT: - Medical Decision Making This is a 65-year-old male that presents with low back strain, right sholder and hip strain. Patient is stable was examined by me. There is no spinal tenderness. There is no cauda equina syndrome during examination. No bladder or bowel instability. Patient notified of the CT and x-ray results with no questions noted by the patient. Patient received NORCO in the ED which preceded his symptoms has resolved and subsided. Stated family member will drive her home after discharge. Patient is discharged with muscle relaxant and Motrin. Patient was instructed not to operate any machinery while taking muscle relaxant as they cause her drowsiness. Patient was referred to Follow-up with a primary care doctor in 3-5 days or if symptoms worsen and continue return to emergency room as soon as possible. At time of discharge, the patient does not seem toxic or ill in appearance. No acute signs of distress noted. Patient agrees to discharge treatment plan of care. No further questions noted by the patient. This chart is dictated with using [employer] D[employer]ation Program Critical care attestation.: If time is entered above; I have spent that time in minutes in the direct care of this critically ill patient, excluding procedure time. ED Disposition Clinical Impression: Fall Qualifiers: Encounter type: initial encounter Qualified Code(s): W19.XXXA - Unspecified fall, initial encounter Low back strain Qualifiers: Encounter type: initial encounter Qualified Code(s): S39.012A - Strain of muscle, fascia and tendon of lower back, initial encounter Strain of right hip Qualifiers: Encounter type: initial encounter Qualified Code(s): S76.011A - Strain of muscle, fascia and tendon of right hip, initial encounter Right shoulder strain Qualifiers: Encounter type: initial encounter Qualified Code(s): S46.911A - Strain of unspecified muscle, fascia and tendon at shoulder and upper arm level, right arm, initial encounter Disposition: TO HOME OR SELFCARE Is pt being admited?: No Does the pt Need Aspirin: No Condition: Stable Instructions: Fall Prevention for Older Adults (ED), Cyclobenzaprine (By mouth) Additional Instructions: Follow-up with your primary care doctor in 3-5 days or if symptoms worsen such as bladder or bowel stability, chest pain, short of breath, numbness or tingling sensation in extremities, headache, dizziness, visual changes, nausea vomiting, or abdominal pain, return back to emergency room as was possible. Take ibuprofen and Flexeril as prescribed. Do not operate heavy machinery while taking Flexeril due to sedation Prescriptions: Cyclobenzaprine HCl [Flexeril 5 MG TAB] 5 mg PO QHS PRN #5 tab PRN Reason: Muscle Spasm Referrals: PRIMARY MD OCTAVIO [Primary Care Provider] - 3-5 Days SANG KAUFMAN MD [Staff Physician] - 3-5 Days
--- NOTE | 2019-11-22 17:59 | Cat Scan Report ---
CT lumbar spine wo con INDICATION / CLINICAL INFORMATION: 64 years Female; low back pain s/p fall. TECHNIQUE: Axial CT images of the lumbar spine were obtained after administration of intrathecal contrast. Sagi ttal and coronal reformatted images were produced. All CT scans at this location are performed using CT dose reduction for ALARA by means of automated exposure control. COMPARISON: None available. FINDINGS: POST-SURGICAL CHANGES: None. ALIGNMENT: There is slight anterolisthesis at L4-L5 with associated prominence of facet joint arthrop athy. There is minimal retrolisthesis at L5-S1 with notable left facet joint hypertrophy. There is no significant lumbar scoliosis. VERTEBRAE: The findings are most consistent with degenerative the changes and limits L3 vertebrae wit h well corticated density along the anterior, superior endplate at. Also multilevel mild endplate leonarda nges particularly anteriorly, involving the remaining is less orbital lumbar segments. There is no cl ear CT evidence of acute compression fracture involving the lumbar spine. INTERVERTEBRAL DISCS: The left-sided facet joint hypertrophy at L5-S1 encroaches on the exiting left L5 nerve root sheath at. Mild narrowing is seen on the right. The disc bulge and facet joint hypertrophy at L4-L5 results in mild degree of spinal stenosis at. Add itionally, the neural from narrowing encroaches on the exiting L4 nerve root sheaths bilaterally. There is no stenosis at L3-4. There are mild facet joint changes at L2-3 with slight flattening of th e thecal sac at. There is mild left neural foraminal narrowing. The right-sided hypertrophic changes at T11-12. Result in moderate degree of right foraminal narrowing. PARASPINAL SOFT TISSUES: No significant abnormality. ADDITIONAL FINDINGS: None. IMPRESSION: 1. There are multilevel degenerative the changes involving lumbar spine, most notably at L4-5 and on the left at L5-S1 as detailed above. 2. The endplate changes at L3-4. Be on a degenerative basis. There is no clear CT evidence of acute f racture involving the lumbar spine. Signer Name: Zev Rangel MD Signed: 11/22/2019 5:54 PM Workstation Name: [id number]
== END 2019-11-22 19:40 | disposition home or self-care (01) ==
LOC: ED 12:20
DX: S39.012A Strain of muscle, fascia and tendon of lower back, initial encounter (principal); S76.011A Strain of muscle, fascia and tendon of right hip, initial encounter; S46.911A Strain of unspecified muscle, fascia and tendon at shoulder and upper arm level, right arm, initial encounter; I10 Essential (primary) hypertension; M19.91 Primary osteoarthritis, unspecified site; F17.200 Nicotine dependence, unspecified, uncomplicated; Z90.49 Acquired absence of other specified parts of digestive tract; Z90.710 Acquired absence of both cervix and uterus; Z79.899 Other long term (current) drug therapy; Z88.8 Allergy status to other drugs, medicaments and biological substances; W01.0XXA Fall on same level from slipping, tripping and stumbling without subsequent striking against object, initial encounter; Y93.89 Activity, other specified; Y92.89 Other specified places as the place of occurrence of the external cause; Y99.8 Other external cause status
CPT/HCPCS: 72100; 72131

== ENCOUNTER 2021-02-10 16:19 | Emergency (ER) | payer MEDICARE ==
[2021-02-10 17:09] VITALS: BP 188/87
== END 2021-02-10 23:48 | disposition left against medical advice (07) ==
LOC: ED 16:19
DX: I10 Essential (primary) hypertension (principal); Z53.21 Procedure and treatment not carried out due to patient leaving prior to being seen by health care provider